=== PATIENT | female | born 2005 | race Caucasian/White ===

== ENCOUNTER 2024-01-07 11:50 | Emergency (ER) | payer BC ==
[2024-01-07] MEDS ORDERED: Ketorolac Tromethamine 30 MG (1 mL) VIAL ONE (12:21)
[2024-01-07] MEDS ORDERED: Metoclopramide HCl 10 MG (2 mL) VIAL ONE (12:21)
== END 2024-01-07 14:08 | disposition home or self-care (01) ==
LOC: ERS 11:50
DX: G43.909 Migraine, unspecified, not intractable, without status migrainosus (principal)
CPT/HCPCS: 96374; 96375; J1885; J2765